=== PATIENT | female | born 1980 | race Caucasian/White ===

== ENCOUNTER 2016-10-11 | Emergency (ER) | payer OTHER ==
--- NOTE | 2016-10-11 12:14 | ED Physician Documentation ---
History of Present Illness - Stated complaint Stated Complaint: RX REFILL - Chief complaint Chief Complaint: General - History obtained from History obtained from: Patient - History of Present Illness Timing: Chronic (She has chronic back pain for which she takes gabapentin, 300 mg 3 times a day. She was going to fill her prescription today, however the [facility] is working on holiday hours and is not open and she needs 3 days worth until he they open again. No acute complaints.) Review of Systems : denies: Dysuria, Incontinent, Now EGA Musculoskeletal: reports: Back pain. 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 - Present Medications Home Medications: Ambulatory Orders Medication Instructions Recorded Confirmed Bupropion HCl [Wellbutrin Xl] 300 mg PO DAILY 03/31/16 10/11/16 Sertraline HCl [Zoloft] 100 mg PO DAILY 03/31/16 10/11/16 Gabapentin 300 mg PO TID 10/11/16 10/11/16 Gabapentin 300 mg PO TID #10 capsule 10/11/16 - Allergies Allergies/Adverse Reactions: Allergies Allergy/AdvReac Type Severity Reaction Status Date / Time erythromycin base Allergy Unknown Unknown Verified 03/31/16 00:47 - Social History Does the pt smoke?: No Smoking Status: Never smoker Does the pt drink ETOH?: No Does the pt have substance abuse?: Yes - Immunizations Immunizations are current?: Yes - POLST Patient has POLST: No PD ED PE NORMAL - Vitals Vital signs reviewed: Yes - General General: Alert and oriented X 3, No acute distress - Derm Derm: Normal color, Warm and dry - Neuro Neuro: Alert and oriented X 3, Normal speech - Psych Psych: Normal mood, Normal affect Results - Vitals Vitals: Vital Signs - 24 hr 10/11/16 11:33 Temperature 36.5 C Heart Rate 59 L Respiratory 18 Rate Blood Pressure 112/73 O2 Saturation 100 Oxygen O2 Source Room air Departure - Departure Disposition: Home, Self Care Clinical Impression: Chronic back pain Qualifiers: Back pain location: low back pain Back pain laterality: unspecified Sciatica presence: unspecified whether sciatica present Qualified Code(s): M54.5 - Low back pain; G89.29 - Other chronic pain Condition: Good Record reviewed to determine appropriate education?: Yes Instructions: ED Chronic Pain Prescriptions: Gabapentin 300 mg PO TID #10 capsule
== END 2016-10-11 12:16 | disposition home or self-care (01) ==
CPT/HCPCS: 99283

== ENCOUNTER 2020-03-08 17:04 | Emergency (ER) | payer OTHER ==
[2020-03-08 17:11] VITALS: BP 135/78
--- NOTE | 2020-03-08 17:21 | ED Physician Documentation ---
History of Present Illness - Stated complaint Stated Complaint: MEDS - Chief complaint Chief Complaint: General - History obtained from History obtained from: Patient - History of Present Illness Timing: Today Pain level max: 0 Pain level now: 0 - Additonal information Additional information: 39-year-old female is visiting from the [facility], forgot her Zoloft and Wellbutrin. Requesting a refill for a few days. No other complaints. 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 - Present Medications Home Medications: Ambulatory Orders Medication Instructions Recorded Confirmed Bupropion HCl [Wellbutrin Xl] 300 mg PO DAILY 03/31/16 10/11/16 Sertraline HCl [Zoloft] 100 mg PO DAILY 03/31/16 10/11/16 Gabapentin 300 mg PO TID 10/11/16 10/11/16 Gabapentin 300 mg PO TID #10 capsule 10/11/16 Sertraline HCl [Zoloft] 100 mg PO DAILY #5 tablet 03/08/20 buPROPion [Wellbutrin Xl] 150 mg PO BID #10 tablet 03/08/20 - Allergies Allergies/Adverse Reactions: Allergies Allergy/AdvReac Type Severity Reaction Status Date / Time erythromycin base Allergy Unknown Unknown Verified 03/08/20 17:07 - Social History Does the pt smoke?: No Smoking Status: Never smoker Does the pt drink ETOH?: No Does the pt have substance abuse?: Yes - Immunizations Immunizations are current?: Yes - POLST Patient has POLST: No PD ED PE NORMAL - Vitals Vital signs reviewed: Yes - General General: Alert and oriented X 3, No acute distress - HEENT HEENT: Moist mucous membranes - Respiratory Respiratory: No respiratory distress - Derm Derm: Warm and dry - Neuro Neuro: Alert and oriented X 3 Results - Vitals Vitals: Vital Signs - 24 hr 03/08/20 17:07 Temperature 36.5 C Heart Rate 86 Respiratory 16 Rate Blood Pressure 135/78 H O2 Saturation 98 Oxygen O2 Source Room air PD MEDICAL DECISION MAKING - ED course Complexity details: considered differential, d/w patient ED course: Medications refilled. No emergency medical condition at this time. This document was made in part using voice recognition software. While efforts are made to proofread this document, sound alike and grammatical errors may occur. Departure - Departure Disposition: 01 Home, Self Care Clinical Impression: Medication refill Condition: Good Follow-Up: your,doctor as needed [Other] Prescriptions: buPROPion [Wellbutrin Xl] 150 mg PO BID #10 tablet Sertraline HCl [Zoloft] 100 mg PO DAILY #5 tablet Comments: Return if you worsen. You were given 5 days of medication today.
== END 2020-03-08 17:24 | disposition home or self-care (01) ==
LOC: ED 17:04
DX: F32.9 Major depressive disorder, single episode, unspecified (principal); Z76.0 Encounter for issue of repeat prescription
CPT/HCPCS: 99282; 99283